=== PATIENT | female | born 1990 | race Caucasian/White ===

== ENCOUNTER 2022-02-03 07:07 | Emergency (ER) | payer SELFPAY ==
[~2022-02-03] VITALS: Ht 134.6 cm; Wt 70.0 kg
[2022-02-03 07:13] VITALS: BP 142/86
== END 2022-02-03 07:45 | disposition home or self-care (01) ==
LOC: ER 07:41
DX: T14.8XXA Other injury of unspecified body region, initial encounter (principal); X58.XXXA Exposure to other specified factors, initial encounter; F15.10 Other stimulant abuse, uncomplicated
CPT/HCPCS: 99283